=== PATIENT | male | born 1955 | race Caucasian/White ===

== ENCOUNTER 2016-12-15 19:58 | Emergency (ER) | payer OTHER ==
[~2016-12-15] VITALS: Ht 190.5 cm; Wt 81.6 kg
[2016-12-15 22:30] LABS: BASOPHIL % 0.7 % (0-2); PLATELET COUNT 165 x10^3mcL (130-400)
[2016-12-15 22:36] LABS: RED CELL DISTRIBUTION WIDTH 17.3 % (11.5-14.5)
[2016-12-15 22:40] LABS: CALCIUM 8.3 mg/dL (8.5-10.1); CARBON DIOXIDE 27.8 mmol/L (21-32); CHLORIDE SERUM 100 mmol/L (98-107); CREATININE SERUM 0.9 mg/dL (0.7-1.3); GFR1 > 60 mL/min; GLUCOSE SERUM 94 mg/dL (74-106); POTASSIUM SERUM 4.2 mmol/L (3.5-5.1); SODIUM SERUM 134 mmol/L (136-145)
[2016-12-15 22:45] LABS: ALBUMIN 3.6 g/dL (3.4-5.0); ALKALINE PHOSPHATASE 90 U/L (46-116); ALT/SGPT 39 U/L (16-63); AST/SGOT 62 U/L (15-37); BILIRUBIN TOTAL 0.6 mg/dL (0.20-1.00); TOTAL PROTEIN, SERUM 6.7 g/dL (6.4-8.2)
[2016-12-15 22:45] LABS: AMPHETAMINE QUAL UR NONE DETECTED (NEG <=1000)
[2016-12-16 02:45] VITALS: BP 124/81
[2016-12-17] MEDS ORDERED: LASIX40 MG PO (21:14)
[2016-12-17] MEDS ORDERED: ASPIR 8181 MG PO (21:14)
[2016-12-17] MEDS ORDERED: KROGER NIC21 MG/24 H TOP (21:16)
[2016-12-17] MEDS ORDERED: KLOR-CON 1010 MEQ PO (21:16)
[2016-12-17] MEDS ORDERED: DEPAKOTE500 MG PO (21:17)
[2016-12-17] MEDS ORDERED: LEXAPRO5 M1 PO (21:17)
[2016-12-17] MEDS ORDERED: TRAMADOL HCL50 MG PO (21:18)
[2016-12-23] MEDS ORDERED: BACTROBAN21 ×3 (11:01→11:05)
[2016-12-23] MEDS ORDERED: HIBICLENS118 ML TOP ×3 (11:01→11:05)
== END 2016-12-16 02:45 ==
LOC: ED 19:58
PROVIDERS: Emergency Medicine
DX: I50.9 Heart failure, unspecified (principal); M54.5 Low back pain; G89.29 Other chronic pain; R78.89 Finding of other specified substances, not normally found in blood; Z86.73 Personal history of transient ischemic attack (TIA), and cerebral infarction without residual deficits; Z79.1 Long term (current) use of non-steroidal anti-inflammatories (NSAID); Z79.899 Other long term (current) drug therapy
CPT/HCPCS: 83880; J1940

== ENCOUNTER 2016-12-17 20:28 | Inpatient (IN) | payer OTHER ==
[~2016-12-17] VITALS: Ht 185.4 cm; Wt 86.0 kg
--- NOTE | 2016-12-17 20:59 | NUR ---
PT BIB AMBULANCE FROM [facility] WITH C/O INCREASED SWELLING TO BLE/TESTICLES. PT ALSO WITH C/O PRESSURE LIKE CP 5/10. SITTER AT BEDSIDE.
[2016-12-17] MEDS ORDERED: LASIX40 MG PO (21:14)
[2016-12-17] MEDS ORDERED: ASPIR 8181 MG PO (21:14)
[2016-12-17] MEDS ORDERED: KROGER NIC21 MG/24 H TOP (21:16)
[2016-12-17] MEDS ORDERED: KLOR-CON 1010 MEQ PO (21:16)
[2016-12-17 21:17] LABS: BASOPHIL % 0.6 % (0-2); PLATELET COUNT 163 x10^3mcL (130-400)
[2016-12-17] MEDS ORDERED: LEXAPRO5 M1 PO (21:17)
[2016-12-17] MEDS ORDERED: DEPAKOTE500 MG PO (21:17)
[2016-12-17] MEDS ORDERED: TRAMADOL HCL50 MG PO (21:18)
[2016-12-17 21:29] LABS: CALCIUM 8.5 mg/dL (8.5-10.1); CARBON DIOXIDE 28.1 mmol/L (21-32); CHLORIDE SERUM 98 mmol/L (98-107); GFR1 > 60 mL/min; GLUCOSE SERUM 79 mg/dL (74-106); POTASSIUM SERUM 4.4 mmol/L (3.5-5.1); SODIUM SERUM 129 mmol/L (136-145)
--- NOTE | 2016-12-17 21:30 | NUR ---
PT SITTING UP IN BED WATCHING TV TALKING WITH SITTER. NO SIGNS OF DISTRESSN NOTED THIS TIME.
[2016-12-17 21:33] LABS: RED CELL DISTRIBUTION WIDTH 17.4 % (11.5-14.5)
[2016-12-17 21:35] LABS: ALBUMIN 3.8 g/dL (3.4-5.0); ALKALINE PHOSPHATASE 87 U/L (46-116); ALT/SGPT 34 U/L (16-63); AST/SGOT 41 U/L (15-37); BILIRUBIN TOTAL 0.5 mg/dL (0.20-1.00); TOTAL PROTEIN, SERUM 6.8 g/dL (6.4-8.2)
[2016-12-17 22:04] LABS: CK-MB 2.9 ng/mL (0-3.6)
[2016-12-17 22:22] LABS: microscopic required? NO
--- NOTE | 2016-12-17 22:37 | NUR ---
REPORT GIVEN TO LINCOLN ROMO.
[2016-12-17 22:43] LABS: UA SPECIFIC GRAVITY <=1.005 (1.005-1.035); urine erythrocyte NEGATIVE (NEGATIVE)
--- NOTE | 2016-12-17 23:12 | NUR ---
PT UP WALKING IN ROOM. SITTER AT BEDSIDE FOR SAFETY.
[2016-12-17 23:34] VITALS: BP 137/104
--- NOTE | 2016-12-17 23:42 | NUR ---
RECEIVED PT FROM ED VIA [email or web address]. ORIENTED PT TO ROOM AND SURROUNDINGS. IV NOTED TO RFA PATENT AND INTACT. TELE 10 PLACED ON PT READING NSR WITH ELEVATED T WAVE. INSTRUCTED PT ON THE USE OF CALL LIGHT FOR ASSISTANCE. ENDORSED PT TO PRIMARY NURSE
--- NOTE | 2016-12-18 | NUR ---
PT UP IN ROOM FOR AMBULATION. SITTER AT BEDSIDE FOR SAFETY.
[2016-12-18 00:19] LABS: T3 TOTAL 0.91 ng/mL
[2016-12-18 00:40] LABS: FREE T4 1.11 ng/dL (0.76-1.46); FREE THYROXINE INDEX 2.6 ug/dL (1.4-4.5); T4(THYROXINE) 6.7 ug/dL (4.7-13.3)
[2016-12-18] MEDS ORDERED: DEPAKOTE ER250 M1 PO (00:51)
[2016-12-18] MEDS ORDERED: APAP500 MG PO (00:52)
[2016-12-18 05:38] VITALS: BP 105/71
--- NOTE | 2016-12-18 06:19 | NUR ---
PT IS A/O X4, VERBAL RESPONSIVE, ABLE TO TELL WHAT HE NEEDS. PT IS CALM AND COOPERATED AT THIS TIME, PT DENY ANY RESPIRAOTRY DISTRESS, C/O PAIN AT LEGS. TRAMADOL WAS GIVE, IV AT RIGHT FA, NO LEAKING, NO INFILTRATION, ALL ADLS ASSIST, ALL NEED MET, CALL LIGHT IN REACH, WILL CONTINUE TO MONITOR.
[2016-12-18 06:21] LABS: CALCIUM 8.2 mg/dL (8.5-10.1); CARBON DIOXIDE 27.3 mmol/L (21-32); CHLORIDE SERUM 100 mmol/L (98-107); CREATININE SERUM 1.1 mg/dL (0.7-1.3); GFR1 > 60 mL/min; GLUCOSE SERUM 87 mg/dL (74-106); POTASSIUM SERUM 4.5 mmol/L (3.5-5.1); SODIUM SERUM 135 mmol/L (136-145)
[2016-12-18 06:56] LABS: BASOPHIL % 0.5 % (0-2); PLATELET COUNT 139 x10^3mcL (130-400)
[2016-12-18 06:57] LABS: RED CELL DISTRIBUTION WIDTH 17.7 % (11.5-14.5)
--- NOTE | 2016-12-18 07:23 | NUR ---
PT IS A/O X4, VERBAL RESPONSIVE, ABLE TO TELL WHAT HE NEEDS. LUNG SOUND CLEAR BILATERAL, NO COUGH, NO SOB, PT IS ON TELE 10, NSR, DENY ANY CHEST PAIN OR DISCOMFORT, AT THIS MOMENT, BOWEL SOUND PRESENT ALL 4 QUADANTS, NO DISTENTION, NO TENDER. SWELLING AT SCROTUM, AND +3 EDEME AT BLE, IV AT LEFT FA, NO LEAKING, NO INFILTRATION. ALL ADLS ASSIST, ALL NEED MET, CALL LIGHT IN REACH, WILL CONTINUE TO MONITOR.
[2016-12-18 09:40] VITALS: BP 107/75
--- NOTE | 2016-12-18 11:00 | NUR ---
PT AMBULATING IN HALLWAY WITH 1:1 SITTER. NO ACUTE DISTRESS. WILL CONTINUE TO MONITOR.
--- NOTE | 2016-12-18 12:03 | NUR ---
CESAR PATEL AT BEDSIDE TALKING TO PT AND PT'S BROTHER AND SISTER. WILL CONTINUE TO MONITOR.
[2016-12-18] MEDS ORDERED: ZESTRIL5 MG PO (12:45)
[2016-12-18] MEDS ORDERED: METOPROLOL TART25 M1 PO (12:46)
[2016-12-18 13:04] VITALS: Ht 185.4 cm; Wt 86.0 kg
[2016-12-18 13:10] VITALS: BP 110/77
[2016-12-18 17:18] VITALS: BP 94/59
--- NOTE | 2016-12-18 18:53 | NUR ---
SPOKE WITH [employer]ATE LEGAL MANAGER FROM [facility] AND GAVE REPORT. [facility] TRANSPORT TEAM WITH PT. FAMILY NOTIFIED. DISCHARGE PACKET WITH PT. AWAKE, ALERT, AND ORIENTED. TRANSPORTED VIA [facility]. BELONGINGS WITH PT. IV DC'D INTACT. TELE REMOVED. [facility] TRANSPORT TEAM ASSISTED PT TO LOBBY.
[2016-12-23] MEDS ORDERED: BACTROBAN21 ×3 (11:01→11:05)
[2016-12-23] MEDS ORDERED: HIBICLENS118 ML TOP ×3 (11:01→11:05)
== END 2016-12-18 18:51 | DRG 292 ==
LOC: ED 20:28 → DU 21:34
PROVIDERS: Emergency Medicine; Family Medicine; ADMIT Student in an Organized Health Care Education/Training Program
DX: I50.43 Acute on chronic combined systolic (congestive) and diastolic (congestive) heart failure (principal); E87.1 Hypo-osmolality and hyponatremia; F32.9 Major depressive disorder, single episode, unspecified; F22 Delusional disorders; E83.51 Hypocalcemia; B18.2 Chronic viral hepatitis C; D64.9 Anemia, unspecified; M54.9 Dorsalgia, unspecified; G89.29 Other chronic pain; F12.10 Cannabis abuse, uncomplicated; F17.290 Nicotine dependence, other tobacco product, uncomplicated; Z68.25 Body mass index [BMI] 25.0-25.9, adult; Z86.73 Personal history of transient ischemic attack (TIA), and cerebral infarction without residual deficits; Z59.0 Homelessness
CPT/HCPCS: 83880; 84439; J1940; J7030

== ENCOUNTER 2016-12-21 15:42 | Observation (INO) | payer OTHER ==
[~2016-12-21] VITALS: Ht 190.5 cm; Wt 93.9 kg
[~2016-12-21 15:42] MED LIST: APAP500 MG PO; ASPIR 8181 MG PO; DEPAKOTE ER250 M1 PO; DEPAKOTE500 MG PO; KLOR-CON 1010 MEQ PO; KROGER NIC21 MG/24 H TOP; LASIX40 MG PO; LEXAPRO5 M1 PO; METOPROLOL TART25 M1 PO; TRAMADOL HCL50 MG PO; ZESTRIL5 MG PO
[2016-12-21 17:21] LABS: BASOPHIL % 0.5 % (0-2); PLATELET COUNT 165 x10^3mcL (130-400)
[2016-12-21 17:29] LABS: RED CELL DISTRIBUTION WIDTH 17.4 % (11.5-14.5)
[2016-12-21 17:30] LABS: CALCIUM 8.6 mg/dL (8.5-10.1); CARBON DIOXIDE 29.6 mmol/L (21-32); CHLORIDE SERUM 96 mmol/L (98-107); GFR1 > 60 mL/min; GLUCOSE SERUM 86 mg/dL (74-106); POTASSIUM SERUM 4.5 mmol/L (3.5-5.1); SODIUM SERUM 133 mmol/L (136-145)
[2016-12-21 17:41] LABS: ALBUMIN 3.6 g/dL (3.4-5.0); ALKALINE PHOSPHATASE 90 U/L (46-116); ALT/SGPT 32 U/L (16-63); AMYLASE 53 U/L (25-115); AST/SGOT 33 U/L (15-37); BILIRUBIN TOTAL 0.51 mg/dL (0.20-1.00); CHOLESTEROL 117 mg/dL (<200); HDL CHOLESTEROL 60 mg/dL (40-60); LIPASE 160 IU/L (73-393); T4(THYROXINE) 7.3 ug/dL (4.7-13.3); TOTAL PROTEIN, SERUM 7.1 g/dL (6.4-8.2)
[2016-12-21 18:31] LABS: UA SPECIFIC GRAVITY <=1.005 (1.005-1.035); microscopic required? YES; urine erythrocyte TRACE (NEGATIVE)
[2016-12-21 18:40] LABS: AMPHETAMINE QUAL UR NONE DETECTED (NEG <=1000)
[2016-12-21 20:57] VITALS: BP 123/86
[2016-12-21 20:58] LABS: T3 TOTAL 0.82 ng/mL
[2016-12-21 21:03] LABS: FREE T4 0.99 ng/dL (0.76-1.46); FREE THYROXINE INDEX 2.5 ug/dL (1.4-4.5); T4(THYROXINE) 7.4 ug/dL (4.7-13.3)
[2016-12-21 21:13] LABS: MAGNESIUM 2.2 mg/dL (1.8-2.4); PHOSPHOROUS 4.1 mg/dL (2.5-4.9)
[2016-12-21] MEDS ORDERED: DEPAKOTE ER250 M1 PO (21:19)
[2016-12-21] MEDS ORDERED: DEPAKOTE500 MG PO (21:20)
[2016-12-22 05:30] VITALS: BP 105/70
[2016-12-22] MEDS ORDERED: METOPROLOL SUC100 M2 PO (06:02)
[2016-12-22 06:33] LABS: BASOPHIL % 0.5 % (0-2); CALCIUM 8.2 mg/dL (8.5-10.1); CREATININE SERUM 1.3 mg/dL (0.7-1.3); PLATELET COUNT 131 x10^3mcL (130-400); POTASSIUM SERUM 4.8 mmol/L (3.5-5.1)
[2016-12-22 06:40] LABS: RED CELL DISTRIBUTION WIDTH 17.8 % (11.5-14.5)
[2016-12-22 08:54] VITALS: BP 115/61
[2016-12-22 12:41] VITALS: BP 115/61
[2016-12-22 13:06] VITALS: BP 122/71
[2016-12-22] MEDS ORDERED: LORTAB 5/3251 TAB PO (13:53)
[2016-12-23] MEDS ORDERED: BACTROBAN21 ×3 (11:01→11:05)
[2016-12-23] MEDS ORDERED: HIBICLENS118 ML TOP ×3 (11:01→11:05)
== END 2016-12-22 14:05 | disposition home or self-care (01) | DRG 194 ==
LOC: ED 15:42 → DU 19:55
PROVIDERS: Emergency Medicine; ADMIT Family Medicine
DX: I50.43 Acute on chronic combined systolic (congestive) and diastolic (congestive) heart failure (principal); E87.1 Hypo-osmolality and hyponatremia; I86.1 Scrotal varices; E83.51 Hypocalcemia; I80.02 Phlebitis and thrombophlebitis of superficial vessels of left lower extremity; B18.2 Chronic viral hepatitis C; F32.9 Major depressive disorder, single episode, unspecified; F17.210 Nicotine dependence, cigarettes, uncomplicated; Z68.25 Body mass index [BMI] 25.0-25.9, adult; Z86.73 Personal history of transient ischemic attack (TIA), and cerebral infarction without residual deficits; Z79.82 Long term (current) use of aspirin; Z22.322 Carrier or suspected carrier of Methicillin resistant Staphylococcus aureus
CPT/HCPCS: 83880; 84439; G0378; J1644; J1885; J2270; J7030; J7050; Q0092